=== PATIENT | female | born 1950 | race American Indian/Alaskan Native ===

== ENCOUNTER 2016-08-27 17:28 | Emergency (ER) | payer BC ==
[~2016-08-27] VITALS: Ht 147.3 cm; Wt 50.9 kg
[~2016-08-27 17:28] MED LIST: AMBIEN 10MG10 MG PO; CEFTIN 250250 MG/TAB PO; CEPHALEXIN500 M1 PO; CIPRO 500MG TA500 MG PO; DIFLUCAN150 MG PO; DIFLUCAN200 MG PO; FLEXERIL 1010 MG/TAB PO; IMITREX50 MG PO; LEVAQUIN 2250 MG/TAB PO; LEVAQUIN 5500 MG/TA1 PO; LEVAQUIN 750MG750 M1 PO; MACROBID 1100 MG/CAP; MAXALT10 MG; NEURONTIN100 MG/CAP PO; NEURONTIN300 MG/CAP PO; NORCO 325 MG-51 TAB PO; PAMELOR 10MG10 MG PO; PROTONIX 40MG T40 MG PO; PYRIDIUM 100MG100 MG PO; PYRIDIUM200 M1 PO; SINGULAIR 110 MG/TAB PO; VENTOLIN0.09 MG IH; ZYRTEC 10MG10 MG PO; [UNRECOGNIZED DRUG - OTHER]
[2016-08-27 17:42] VITALS: BP 146/67; TEMP 98.8
[2016-08-27 18:42] LABS: PH 6 (5-8); SQUAMOUS EPITHELIAL 0-2 /hpf; URINE APPEARANCE Hazy; URINE BACTERIA Many /hpf; URINE BILIRUBIN Negative (NEGATIVE); URINE BLOOD 1+ (NEGATIVE); URINE COLOR Yellow; URINE GLUCOSE Negative (NEGATIVE); URINE KETONE Negative (NEGATIVE); URINE RBC 0-2 /hpf; URINE UROBILINOGEN Negative (NEGATIVE); URINE WBC 20-50 /hpf
[2016-08-27] MEDS ORDERED: DIFLUCAN150 MG PO (19:14)
[2016-08-27] MEDS ORDERED: CEPHALEXIN500 M1 PO (19:14)
[2016-08-27 19:25] VITALS: PULSE 98
== END 2016-08-27 19:25 | disposition home or self-care (01) ==
LOC: COL.ER 17:28
PROVIDERS: Nurse Practitioner
DX: N39.0 Urinary tract infection, site not specified (principal); J45.909 Unspecified asthma, uncomplicated; G43.909 Migraine, unspecified, not intractable, without status migrainosus; F41.9 Anxiety disorder, unspecified

== ENCOUNTER 2016-09-16 21:59 | Emergency (ER) | payer BC ==
[~2016-09-16] VITALS: Ht 144.8 cm; Wt 50.9 kg
[2016-09-16 22:05] VITALS: BP 190/86; PULSE 92; TEMP 98.1
[2016-09-16] MEDS ORDERED: PRINIVIL10 MG PO (22:08)
[2016-09-16 22:45] LABS: PH 6 (5-8); SQUAMOUS EPITHELIAL None Seen /hpf; URINE APPEARANCE Clear; URINE BACTERIA Rare /hpf; URINE BILIRUBIN Negative (NEGATIVE); URINE BLOOD 2+ (NEGATIVE); URINE COLOR Colorless; URINE GLUCOSE Negative (NEGATIVE); URINE KETONE Negative (NEGATIVE); URINE RBC 0-2 /hpf; URINE UROBILINOGEN Negative (NEGATIVE)
[2016-09-16] MEDS ORDERED: OMNICEF 300MG300 MG PO (23:02)
[2016-09-16] MEDS ORDERED: ZOFRAN ODT4 MG PO (23:02)
[2016-09-16] MEDS ORDERED: PYRIDIUM 100MG100 MG PO (23:02)
== END 2016-09-16 23:43 | disposition home or self-care (01) ==
LOC: COL.ER 21:59
PROVIDERS: Physician Assistant
DX: N39.0 Urinary tract infection, site not specified (principal); M62.830 Muscle spasm of back; J45.909 Unspecified asthma, uncomplicated; G89.29 Other chronic pain; M54.9 Dorsalgia, unspecified
CPT/HCPCS: J0696

== ENCOUNTER 2017-05-03 23:46 | Emergency (ER) | payer BC, MEDICARE ==
[~2017-05-03] VITALS: Ht 144.8 cm; Wt 50.9 kg
[~2017-05-03 23:46] MED LIST changes: +OMNICEF 300MG300 MG PO; +PRINIVIL10 MG PO; +ZOFRAN ODT4 MG PO
[2017-05-03 23:47] VITALS: TEMP 99.1
[2017-05-04 00:21] LABS: INFLUENZA A NEGATIVE; INFLUENZA B NEGATIVE
[2017-05-04 00:26] LABS: BASO # 0.1 (0.0-0.2); BASO % 0.8 % (0.0-2.0); EOS # 0.2 (0.0-0.7); EOS % 2.6 % (0-4.0); GRAN # 5.6 (1.4-6.5); GRAN % 76.6 % (42.2-75.2); LYMPH # 0.8 (1.2-3.4); LYMPH % 10.9 % (20.0-51.0); MEAN CELL VOLUME 90 fl (80.0-100.0); MEAN CORPUSCULAR HGB CONC 34 g/dl (33.0-37.0); MEAN PLATELET VOLUME 7.5 fl (7.4-10.4); MONO # 0.6 (0.1-0.6); MONO % 8.8 % (1.7-9.3); PLATELET COUNT 338 K/mm3 (130-400); RED BLOOD COUNT 3.82 M/mm3 (4.10-5.30); REDCELL DISTRIBUTION WIDTH-CV 12.1 % (11.5-14.5)
[2017-05-04 00:29] LABS: HEMATOCRIT 34.2 % (37.0-47.0); HEMOGLOBIN 11.7 g/dl (12.5-16.0); MEAN CORPUSCULAR HEMOGLOBIN 31 pg (27.0-31.0)
[2017-05-04 00:37] LABS: ALANINE AMINOTRANSFERASE 57 U/L (9-52); ALBUMIN 4.9 gm/dL (3.5-5.0); ALKALINE PHOSPHATASE 129 U/L (50-136); ANION GAP 11 mmol/L (7-16); AST,SGOT 55 U/L (15-37); BILIRUBIN,TOTAL 0.3 mg/dL (0.0-1.0); BLOOD UREA NITROGEN 4 mg/dL (7-17); CALCIUM 9.3 mg/dL (8.4-10.2); CARBON DIOXIDE 24 mmol/L (22-30); CHLORIDE 99 mmol/L (98-107); CREATININE, serum 0.58 mg/dL (0.52-1.25); GLUCOSE 90 mg/dL (74-106); POTASSIUM 3.8 mmol/L (3.4-5.0); SODIUM 134 mmol/L (137-145); TOTAL PROTEIN 8.1 gm/dL (6.4-8.2)
[2017-05-04 00:57] LABS: TROPONIN-I < 0.012 ng/mL (0.000-0.034)
[2017-05-04] MEDS ORDERED: PREDNISONE20 MG PO (01:17)
[2017-05-04] MEDS ORDERED: DOXYCYCLINE 10100 MG PO (01:17)
[2017-05-04 03:17] VITALS: BP 155/88; PULSE 77
== END 2017-05-04 03:19 | disposition home or self-care (01) ==
LOC: COL.ER 23:46
PROVIDERS: Emergency Medicine
DX: J45.901 Unspecified asthma with (acute) exacerbation (principal)
CPT/HCPCS: J7050; J7512; Q9967